=== PATIENT | male | born 1965 | race American Indian/Alaskan Native ===

== ENCOUNTER → 2016-12-21 | Outpatient (CLI) | payer MEDICAID ==
[~2016-12-21] MED LIST: ASPI-621 PO; HYDR25TA6 PO; INSU100V10 SQ; INSU100V13 SQ-INSULIN; LOSA25TA5 PO; METF10002 PO; METO50TA82 PO; PANT40TA5 PO; PROP20TA PO; SIMV40TA3 PO; ZOLP10TA5 PO
== END | disposition home or self-care (01) ==
LOC: CFH 11:22
PROVIDERS: ATTEND Internal Medicine Geriatric Medicine
DX: K80.20 Calculus of gallbladder without cholecystitis without obstruction (principal); K86.89 Other specified diseases of pancreas; I70.0 Atherosclerosis of aorta; I85.00 Esophageal varices without bleeding; K74.60 Unspecified cirrhosis of liver; K76.6 Portal hypertension; R16.1 Splenomegaly, not elsewhere classified; E11.9 Type 2 diabetes mellitus without complications
CPT/HCPCS: 74170; 82565